=== PATIENT | female | born 1955 | race Caucasian/White ===

== ENCOUNTER → 2016-06-18 | Outpatient (CLI) | payer OTHER ==
--- NOTE | 2016-06-18 17:57 | DX ---
Lumbar Spine, Two Views 1406 hours Indication: Follow up lumbar spine fusion. Comparison: None Technique: Upright AP and lateral views. Findings: L2 is retrolisthesis 4 mm on L3. Lumbar spine is otherwise normally aligned. No acute frac ture. Minimal old compression deformities versus normal variation are present at T12 and L1. The well seated posterior fusion construct extending from L3 to L5 consists of dual posterior rods, b ilateral transpedicular screws in L3, L4 and L5 and radiopaque devices in the L3-L4, L4-L5 and L5-S1 interbody spaces. The L5-S1 vertebral bodies and posterior elements appear to be completely osseous f used. No perihilar hardware fracture or lucency. Impression: 1. Well seated posterior fusion construct extending from L3 to L5. 2. Bony fusion of the L5 and S1 levels. 3. Grade 1 retrolisthesis and degenerative disk disease at L2-L3. Consider flexion and extension view s to assess for instability at this level.
== END ==
LOC: FIMAGING 13:55
PROVIDERS: ATTEND Physician Assistant
DX: M51.86 Other intervertebral disc disorders, lumbar region (principal); Z98.1 Arthrodesis status

== ENCOUNTER → 2016-08-08 | Outpatient (CLI) | payer OTHER | LOC: FIMAGING 10:37 | PROVIDERS: ATTEND Physician Assistant | DX: Z47.89 Encounter for other orthopedic aftercare (principal); Z98.1 Arthrodesis status ==

== ENCOUNTER → 2016-12-12 | Outpatient (CLI) | payer OTHER | LOC: FIMAGING 09:52 | PROVIDERS: ATTEND Physician Assistant | DX: Z98.1 Arthrodesis status (principal); M51.35 Other intervertebral disc degeneration, thoracolumbar region ==

== ENCOUNTER → 2017-06-05 | Outpatient (CLI) | payer OTHER | LOC: FIMAGING 11:02 → EDSTATUS 11:03 | PROVIDERS: ATTEND Physician Assistant | DX: Z98.1 Arthrodesis status (principal) ==

== ENCOUNTER → 2018-02-19 | Outpatient (CLI) | payer OTHER | LOC: FIMAGING 10:25 | PROVIDERS: ATTEND Physician Assistant | DX: Z09 Encounter for follow-up examination after completed treatment for conditions other than malignant neoplasm (principal); Z98.1 Arthrodesis status ==

== ENCOUNTER → 2018-03-08 | Outpatient (CLI) | payer OTHER | LOC: FIMAGING 07:58 | PROVIDERS: ATTEND Physician Assistant | DX: Z98.1 Arthrodesis status (principal); M48.061 Spinal stenosis, lumbar region without neurogenic claudication; N28.1 Cyst of kidney, acquired ==

== ENCOUNTER → 2018-04-15 | Outpatient (CLI) | payer OTHER | LOC: FIMAGING 07:25 | PROVIDERS: ATTEND Internal Medicine | DX: N28.1 Cyst of kidney, acquired (principal) ==

== ENCOUNTER → 2018-10-09 | Outpatient (CLI) | payer OTHER, MEDICARE | LOC: FIMAGING 12:28 | PROVIDERS: ATTEND Physician Assistant | DX: Z98.1 Arthrodesis status (principal) ==

== ENCOUNTER → 2018-10-18 | Outpatient (CLI) | payer OTHER, MEDICARE | LOC: FIMAGING 07:46 ==